=== PATIENT | female | born 1970 ===

== ENCOUNTER 2024-05-04 12:53 | Outpatient (CLI) | payer OTHER | END 2024-05-04 12:59 | disposition home or self-care (01) | LOC: MRI 12:53 | PROVIDERS: ATTEND Physical Medicine & Rehabilitation | DX: M54.50 Low back pain, unspecified (principal); M54.16 Radiculopathy, lumbar region | CPT/HCPCS: 72148 ==

== ENCOUNTER 2024-11-16 11:33 | Outpatient (CLI) | payer OTHER | END 2024-11-16 11:36 | disposition home or self-care (01) | LOC: TOM 11:33 | DX: I63.9 Cerebral infarction, unspecified (principal); G51.9 Disorder of facial nerve, unspecified ==

== ENCOUNTER 2025-01-03 09:04 | Outpatient (CLI) | payer OTHER | END 2025-01-03 09:07 | disposition home or self-care (01) | LOC: SONOGRAMA 09:04 | PROVIDERS: ATTEND Physical Medicine & Rehabilitation | DX: M25.511 Pain in right shoulder (principal); M75.101 Unspecified rotator cuff tear or rupture of right shoulder, not specified as traumatic ==